=== PATIENT | male | born 1950 | race Caucasian/White ===

== ENCOUNTER → 2016-12-07 | Day surgery (SDC) | payer BC ==
[~2016-12-07] MED LIST: BISTOLIC; BUPIVACAINE/EPINEPHRINE 0.25% 50 ML VIAL ONE; KETOROLAC TROMETHAMINE 30 MG/ML (IVP) VIAL IV PUSH ONE; LACTATED RINGER'S 1000 ML INJ 1,000 ML ONE; LEVO88TA2 PO; LIDOCAINE 1%/EPINEPHrine 1:100,000 SOLN 50 ML VIAL ONE; MIDAZOLAM HCL 2 MG/2 ML VIAL ONE; ONDANSETRON HCL 4 MG/2 ML VIAL IV PUSH ONE; PROPOFOL 200 MG/20 ML AMP IV ONE; ceFAZolin 2 GM PREMIX 50 ML ONE
--- NOTE | 2016-12-07 15:52 | TN ---
cc: ELEAZAR CARRASQUILLO M.D. DATE OF SURGERY 12/07/2016 PREOPERATIVE DIAGNOSIS Left inguinal hernia. POSTOPERATIVE DIAGNOSIS Left inguinal hernia. PROCEDURE Open repair left indirect inguinal hernia with mesh. SURGEON Dr. Eleazar Carrasquillo TUNNEL MINER Lianne Gilbert, MATERIALS INTERN SECOND TUNNEL MINER Alba Chinchilla MS-3 ANESTHESIA General. INDICATIONS This a very pleasant 66-year-old gentleman who presented with a known left inguinal hernia for about 6 years. It has increased in size and is associated with symptoms of discomfort and pain. He was desirous of operative repair. INTRAOPERATIVE FINDINGS Moderate chronic indirect inguinal hernia sac with small amount of incarcerated colon. Small spermatic cord lipoma excised and discarded. ESTIMATED BLOOD LOSS Minimal. This procedure was assisted by my MATERIALS INTERN. The skill set of a nurse practitioner was medically necessary to provide adequate exposure and efficiency to the surgery. The certified surgical tech/first assistant was at the back table providing instruments while the MATERIALS INTERN was directly assisting me through the entirety of the surgery. DESCRIPTION OF PROCEDURE IN DETAIL The patient is identified as Guilherme Rose taken to the operating room and placed in the supine position. Sequential compression devices were placed on bilateral lower extremities. Following induction of adequate general anesthesia with a laryngeal mask, the patient's left groin was prepped and draped in usual sterile fashion with Betadine. A time-out procedure was performed. Following completion of time-out procedure to everyone's satisfaction within room, a proposed left groin incision was made with a marking pen. Local anesthetic was injected in the proposed incision site and a field block just medial to the anterior superior iliac spine was performed. Incision was carried out with scalpel and hemostasis controlled with electrocautery. Dissection continued posteriorly through Mirian fascia to the level of the external oblique fascia. More local anesthetic was placed beneath the external oblique fascial fibers and they were opened in direction using a scalpel and Metzenbaum scissor. Underlying branches of the ilioinguinal and iliohypogastric nerve were identified and avoided. Spermatic cord and its contents were from surrounding tissues at the level of pubic tubercle and isolated with Patricia drain. Small amount of anterior cremasteric fiber was divided with electrocautery and the anteromedial surface exam there is an obvious indirect inguinal hernia sac. Surrounding spermatic cord structures were bluntly dissected free of the hernia sac using a blunt forceps and the hernia sac was opened. A small amount of incarcerated contents including the colon and the appendices epiploica were released from the hernia sac and reduced into the peritoneal cavity. The base of the hernia sac was then suture ligated with 2-0 Vicryl suture ligature and redundant sac amputated. A small spermatic cord lipoma was teased from surrounding cord structures and amputated at its base after suture ligature with a 2-0 Vicryl suture ligature was performed. No additional spermatic cord lipomatous tissue was identified. The inguinal floor was examined. There was no evidence of direct hernia or femoral hernia. Inguinal floor was reinforced with a piece of atrium ProLite mesh cut from a 3 x 6 inch piece and held in position with interrupted 0 Ethilon sutures. Sutures were placed above and below the pubic tubercle into Galen's ligament and the shelving edge of the inguinal ligament into the internal oblique fascia. Again care was taken to avoid the ilioinguinal and iliohypogastric nerve branches which were identified and again avoided. A lateral slit was cut into the mesh to allow for passage of spermatic cord. The tails were tucked beneath the external oblique fascia and a single suture was placed lateral to the spermatic cord with the 0 Ethilon. Care was taken to avoid strangulating the spermatic cord. The wound was irrigated copiously with saline. Small bleeding points were controlled with electrocautery. Remaining local anesthetic was placed in the perioperative position and in the spermatic cord structures. The external oblique fascial fibers were then sutured in position with running 3-0 Vicryl suture. Care was taken to avoid underlying tissues. Single 3-0 Vicryl was placed in Mirian fascia and skin was closed with running 4-0 Monocryl subcuticular suture. Dressings were applied with Mastisol and one-half inch brown Steri-Strips, gauze and a Tegaderm. The patient tolerated the procedure without apparent complication. Sponge, needle and instrument counts correct at the end of the case. MD VERNON Ash/NILESH /3:08 PM /3:39 PM [facility]
== END | disposition home or self-care (01) ==
LOC: ESDC 11:50
PROVIDERS: ATTEND Surgery Trauma Surgery
DX: K40.90 Unilateral inguinal hernia, without obstruction or gangrene, not specified as recurrent (principal)
CPT/HCPCS: 00830; 49505; C1781; J0690; J1885; J2250; J2405; J3010; J7120